=== PATIENT | male | born 1970 | race Caucasian/White ===

== ENCOUNTER 2023-01-01 11:42 | Emergency (ER) | payer OTHER, SELFPAY ==
[2023-01-01 11:54] VITALS: BP 133/87; PULSE 73; RESP 20; TEMP 36.7; O2SAT 96
--- NOTE | 2023-01-01 12:12 | ED.URI ---
HPI - URI/Sore Throat General Chief Complaint: Upper Respiratory Infection Stated Complaint: Flu symptoms Time Seen by Provider: 01/01/23 12:00 Source: patient Mode of arrival: ambulatory Limitations: no limitations History of Present Illness HPI Narrative: Chalino is a 52 year old male patient presenting to the clinic today with complaints of cough, congestion, scratchy throat, and feeling feverish. He reports the symptoms have been going on for 3 days. Denies any chest pain or shortness of breath. Does have a history of COPD. Cough is nonproductive at this time but is keeping him awake at night. MD elicited complaint: sore throat and nasal congestion Related Data Home Medications Medication Instructions Recorded Confirmed amlodipine 10 mg tablet 10 mg PO DAILY 03/29/19 01/01/23 enalapril maleate 20 mg tablet 40 mg PO DAILY 03/29/19 01/01/23 levothyroxine 100 mcg capsule 100 mcg PO DAILY 05/31/21 01/01/23 rosuvastatin 40 mg tablet 40 mg PO DAILY 05/31/21 01/01/23 sitagliptin phosphate 50 mg tablet 50 mg PO DAILY 05/31/21 01/01/23 (Januvia) clopidogrel 75 mg tablet 75 mg PO DAILY 01/01/23 01/01/23 dulaglutide 0.75 mg/0.5 mL 0.75 mg subcut DIRECTED 01/01/23 01/01/23 subcutaneous pen injector (Trulicity) Allergies Allergy/AdvReac Type Severity Reaction Status Date / Time No Known Allergies Allergy Verified 01/01/23 11:52 Review of Systems Review of Systems: Pertinent positives per HPI. Patient denies any fever, chills, rash, headache, visual changes, dizziness, shortness of breath, chest pain, palpitations, nausea, vomiting, diarrhea, constipation, abdominal pain, or any urinary issues. [facility] Past Medical History Medical History Dyslipidemia Essential hypertension Hypersomnia Obstructive sleep apnea PAF (paroxysmal atrial fibrillation) Family History Family History Father Diabetes mellitus Hypertension Cerebrovascular accident Sibling Hypertension Family history of elevated blood lipids Mother Carcinoma of colon Social History Social History Smoking status: Never smoker Alcohol intake: never Comments At the time of my signature, I reviewed and agree with the nursing past medical, surgical, social, and family history. There is no relevant family history pertinent to the patient complaint. Exam Narrative: General: Well-developed, morbidly obese in no apparent distress Head: Normocephalic, atraumatic Eyes: Pupils equally round and reactive to light bilaterally, EOM intact, sclera and conjunctive clear, no discharge, lids normal Ears: TMs intact and clear, ear canals clear, no drainage, grossly hearing normal. Nose: Nares patent, clear discharge, no inflammation, no sinus tenderness. Mouth: Oral pharynx without lesions or masses, good dentition, MMM. Postnasal drip Neck: Supple, trachea midline, no enlargement of anterior or posterior cervical nodes, no thyroid masses or goiter palpable. Cardio: Regular rate and rhythm, s1 and s2 normal, no murmur appreciated. Resp: Expiratory wheezing throughout lung phillips, no rhonchi, rales, or rubs Course Course Emergency Course: Portions of this record may have been created with voice recognition software. Level of Care: Express Care Visit Vital Signs Vital signs: Vital Signs Temperature 36.7 C 01/01/23 11:54 Pulse Rate 73 01/01/23 11:54 Respiratory Rate 20 01/01/23 11:54 Blood Pressure 133/87 01/01/23 11:54 Pulse Oximetry 96 01/01/23 11:54 Temperature 36.7 C 01/01/23 11:54 Pulse Rate 73 01/01/23 11:54 Respiratory Rate 20 01/01/23 11:54 Blood Pressure 133/87 01/01/23 11:54 Pulse Oximetry 96 01/01/23 11:54 Vital signs reviewed MDM - URI/Sore Throat MDM Narrative Medical decision making n
== END 2023-01-01 12:18 | disposition home or self-care (01) ==
PROVIDERS: Emergency Provider Nurse Practitioner Family; PCP Internal Medicine
DX: J40 Bronchitis, not specified as acute or chronic (principal); J06.9 Acute upper respiratory infection, unspecified; Z20.822 Contact with and (suspected) exposure to COVID-19; J44.9 Chronic obstructive pulmonary disease, unspecified; E78.5 Hyperlipidemia, unspecified; I10 Essential (primary) hypertension; I48.0 Paroxysmal atrial fibrillation
CPT/HCPCS: 87426; 99213; C9803; G0463

== ENCOUNTER 2023-05-26 07:25 | Outpatient (CLI) | payer OTHER, SELFPAY ==
--- NOTE | ~2023-05-26 | CT_ITS ---
EXAMINATION: CT abdomen pelvis wo/w con DATE: 05/26/2023 08:34 INDICATION: Hematuria TECHNIQUE: Computed tomography (CT) of the abdomen and pelvis was performed without intravenous contr ast. CT of the abdomen and pelvis was then performed with a total of 130 mL Omnipaque 350 intravenous contrast using a double-bolus technique for simultaneous opacification of the renal parenchyma and r enal collecting system. The dose-length product (DLP) was 3328.67 mGy-cm. Automated exposure control and iterative reconstruction technique were employed. COMPARISON: None FINDINGS: There are nodules measuring 6 mm and 4 mm in the right middle lobe. There are small pleural effusions, right greater than left. The heart size is normal. Calcified coronary artery atherosclero sis is noted. The liver, spleen, pancreas, gallbladder, and adrenal glands are normal. There is a 5 m m nonobstructing stone of the left kidney lower pole. There are areas of cortical scarring of the kid neys. No suspicious renal or urothelial lesion identified. The ureters are not well opacified with co ntrast. No ureteral mass or stricture are identified. No pathologically enlarged abdominal or pelvic lymph nodes are identified. Bilateral external iliac chain lymph nodes are prominent but not patholog ically enlarged. No free intraperitoneal gas or evidence of bowel obstruction. There are bilateral L5 pars defects with grade 1 anterolisthesis of L5 on S1. IMPRESSION: 1. 5 mm nonobstructing stone of the left kidney lower pole. No suspicious renal or urothelial lesion identified although contrast opacification of the urinary tract is only fair. 2. Right middle lobe nodules. Follow-up CT in 3-6 months is recommended. Reviewed, dictated and finalized at location [facility]
[2023-05-26 07:47] LABS: Estimated Glomerular Filt Rate > 60
== END 2023-05-26 07:26 | disposition home or self-care (01) ==
LOC: CHSIMG 07:26
PROVIDERS: PCP Internal Medicine; Visit Provider Internal Medicine
DX: R31.29 Other microscopic hematuria (principal); N20.0 Calculus of kidney; R91.8 Other nonspecific abnormal finding of lung field
CPT/HCPCS: 74178; Q9967

== ENCOUNTER 2023-09-28 12:59 | Outpatient (CLI) | payer OTHER, SELFPAY ==
--- NOTE | ~2023-09-28 | CT_ITS ---
CT Scan of the Chest without Contrast: Clinical Indication: Pulmonary nodule Technique: Contiguous sections were acquired throughout the chest without intravenous contrast. Dose reduction technique was used on this scan by utilizing automated exposure control and iterative recon struction technique. The dose-length product (DLP) was 988.54 mGy-cm. COMPARISON: 05/26/2023 Findings: There is no evidence of any significant mediastinal, hilar or axillary lymphadenopathy. Coronary mona ry calcifications are present. No pericardial effusion. Minimal right pleural effusion present. No left pleural effusion. Stable 5 mm right basilar pulmonary nodule (axial image 53). Stable additional 3 mm right middle lobe pulmonary nodule. Stable pleural-based nodule posteriorly at the left lung base. Images through the upper abdomen reveal no abnormalities. Impression: Stable subcentimeter pulmonary nodules, as above. Minimal right pleural effusion. Reviewed, dictated and finalized at [facility]. Impression: Stable subcentimeter pulmonary nodules, as above. Minimal right pleural effusion.
== END 2023-09-28 13:00 | disposition home or self-care (01) ==
PROVIDERS: PCP Internal Medicine; Visit Provider Nurse Practitioner Family
DX: R91.8 Other nonspecific abnormal finding of lung field (principal); J90 Pleural effusion, not elsewhere classified
CPT/HCPCS: 71250

== ENCOUNTER 2024-01-02 00:59 | Day surgery (SDC) | payer OTHER, SELFPAY ==
[2023-12-20 15:26] VITALS: BMI 64.6
--- NOTE | 2023-12-21 16:31 | PC.NURSE ---
Addendum entered by Yolanda Samuels RN 12/29/23 13:34: Pt clarifies that he was taking Plavix until about 3 weeks ago when he started on Pradaxa (Dabigatran) 150mg po bid, he was thinking that Plavix was the same as Pradaxa when he did his med list. Original Note: Spoke with patient regarding his last appt. with DR. Nicole- pt thought it was about 6 months ago and has been since 09/2022. Dr. Nicole wants to see pt in office before clearing him and office was questioning why pt is on Plavix instead of Xarelto. I could not answer this only that Dr. Julien is prescribing. I spoke with Linda in Dr. Arboleda's office and in light of the pts BMI of 64.6 and cardiac history anesthesia would want pt to be seen and cleared by Dr. Nicole prior since it had been over a year. I called pt and spoke with him- he was not happy about having to see him prior but then agreed to call. Appt. is sched. with DR. Nicole for 12/28/2022 at 0945.
--- NOTE | 2023-12-29 13:32 | PC.NURSE ---
Spoke with PATIENT regarding medication PRADAXA(DABIGATRAN). Pt. verbalizes understanding that the last dose of PRADAXA is to be taken on 12/29/2023(STATES HE TOOK LAST DOSE ON [facility]. [place]. 01/03/2024- STATES he told Dr. Nicole this also, the Endoscopist will instruct them when to restart after the procedure.
[2024-01-02 08:30] VITALS: BP 123/81; PULSE 93; RESP 20; TEMP 35.9; O2SAT 95; BMI 66.2
[2024-01-02] MEDS: LACTATED RINGERS 1,000 ML 150 ML IV CONT (08:55)
[2024-01-02 08:57] LABS: Glucose Point of Care 125 mg/dl (65-105)
--- NOTE | 2024-01-02 09:40 | PM.IMHP ---
H&P: HPI History of Present Illness Date/Time: 01/02/24 09:40 Chief Complaint: history of colon polyps Narrative: this is a 53-year-old man who presents for colonoscopy. His last colonoscopy was 5 years ago and a polyp was removed. He denies any hematochezia or melena. He denies a family history of colon cancer. Review of Systems Review of Systems: All systems reviewed & are unremarkable except as noted in HPI and below Constitutional: Constitutional: Denies chills, Denies fever(s), Denies headache(s) and Denies weight loss Eyes: Eyes: Denies change in vision ENT: Denies dizziness, Denies headache(s), Denies neck mass and Denies throat swelling Cardiovascular: Cardiovascular: Denies chest pain, Denies lightheadedness and Denies dyspnea Respiratory: Respiratory: Denies cough, Denies dyspnea and Denies wheezing Gastrointestinal: Gastrointestinal: Denies abdominal pain, Denies change in bowel habits, Denies nausea and Denies vomiting Genitourinary: Genitourinary: Denies hematuria and Denies dysuria Musculoskeletal: Musculoskeletal: Reports as per HPI Integumentary/Breasts: Skin/Breast: Reports as per HPI Neurologic: Denies dizziness and Denies headache(s) Allergic/Immunologic: Allergic/Immunologic: Denies throat swelling and Denies wheezing [facility] Past Medical History Medical History Dyslipidemia Essential hypertension Hypersomnia Obstructive sleep apnea PAF (paroxysmal atrial fibrillation) Family History Family History Father Diabetes mellitus Hypertension Cerebrovascular accident Sibling Hypertension Family history of elevated blood lipids Mother Carcinoma of colon Social History Social History (Updated 12/29/23 @ 09:39 by Alexandra Rico [facility]) Smoking status: Never smoker Alcohol intake: current Substance use: never Substance use type: does not use Do You Feel Safe in your Home?: Yes Lack of Transportation: No Lack of Food: Never True Current Housing: I Have Housing Concerned About Future Housing: No Difficulty Paying Gas/Electric Bills: No Difficulty Paying for Meds: No Currently Unemployed: No Education: Trade/Vocational Certificate Difficulty w/ Childcare or Family Care: No Living arrangements: with family Spiritual care concerns: No Meds Home Medications and Allergies Home Medications Medication Instructions Recorded Confirmed Type amlodipine 10 mg tablet 10 mg PO DAILY 03/29/19 01/02/24 History enalapril maleate 20 mg tablet 40 mg PO DAILY 03/29/19 01/02/24 History levothyroxine 100 mcg capsule 100 mcg PO DAILY 05/31/21 01/02/24 History rosuvastatin 40 mg tablet 40 mg PO DAILY 05/31/21 01/02/24 History sitagliptin phosphate 50 mg tablet 50 mg PO DAILY 05/31/21 01/02/24 History (Januvia) metoprolol succinate 50 mg See Rx Instructions .Route 08/25/23 01/02/24 Rx tablet,extended release 24 hr .COMPLEX #90 tabs allopurinol 100 mg tablet 100 mg PO DAILY 12/20/23 01/02/24 History dabigatran etexilate 150 mg capsule 150 mg PO BID 12/29/23 01/02/24 History Allergies Allergy/AdvReac Type Severity Reaction Status Date / Time No Known Allergies Allergy Verified 01/02/24 08:37 Vital Signs Vital Signs - 24 hr 01/02/24 08:30 Temperature 96.7 F L Pulse Rate 93 Respiratory Rate 20 Blood Pressure 123/81 Pulse Oximetry 95 Oxygen Delivery Room Air Exam Const: General: no acute distress and alert Orientation/consciousness: patient oriented x3 HENMT: Head: normocephalic and atraumatic Ears: hearing grossly normal bilaterally Face/Nose/Sinus: Normal nares present Mouth: Yes Normal oral and palatal mucosa present Eyes: Periorbital: periorbital findings normal Sclera: sclerae normal EOM: EOMs intact bilaterally Neck: Neck: normal visual inspection, no lymphadenopathy and trachea midline Chest: Christiane
--- NOTE | 2024-01-02 10:07 | WPDANESEPPF ---
Anes - Initial Pre Proc Eval Procedure: Operation Date: 01/02/24 10:00 Proposed Procedures p Screening Colonoscopy - Javi Arboleda DO Date/Time: 01/02/24 10:07 Surgeon: Javi Arboleda DO Pre Op Diagnosis: Screening for malignant neoplasm of colon Patient Data Age: 53 Gender: M Height: 1.73 m Weight: 197.5 kg Last Vital Signs Temp 35.9 C L 01/02/24 08:30 Pulse 93 01/02/24 08:30 Resp 20 01/02/24 08:30 BP 123/81 01/02/24 08:30 Pulse Ox 95 01/02/24 08:30 O2 Del Method Room Air 01/02/24 08:30 Allergies Allergy/AdvReac Type Severity Reaction Status Date / Time No Known Allergies Allergy Verified 01/02/24 08:37 Home Medications Medication Instructions Recorded Confirmed Type amlodipine 10 mg tablet 10 mg PO DAILY 03/29/19 01/02/24 History enalapril maleate 20 mg tablet 40 mg PO DAILY 03/29/19 01/02/24 History levothyroxine 100 mcg capsule 100 mcg PO DAILY 05/31/21 01/02/24 History rosuvastatin 40 mg tablet 40 mg PO DAILY 05/31/21 01/02/24 History sitagliptin phosphate 50 mg tablet 50 mg PO DAILY 05/31/21 01/02/24 History (Januvia) metoprolol succinate 50 mg See Rx Instructions .Route 08/25/23 01/02/24 Rx tablet,extended release 24 hr .COMPLEX #90 tabs allopurinol 100 mg tablet 100 mg PO DAILY 12/20/23 01/02/24 History dabigatran etexilate 150 mg capsule 150 mg PO BID 12/29/23 01/02/24 History Laboratory Tests 01/02/24 08:54 POC Capillary Glucose 125 H mg/dl (65-105) Patient hx anesthesia problems: none Family hx anesthesia problems: none Results Review: All pre-operative results and documents have been reviewed as part of the pre-operative evaluation. [facility] Past Medical History Medical History Dyslipidemia Essential hypertension Hypersomnia Obstructive sleep apnea PAF (paroxysmal atrial fibrillation) Family History Family History Father Diabetes mellitus Hypertension Cerebrovascular accident Sibling Hypertension Family history of elevated blood lipids Mother Carcinoma of colon Social History Social History (Updated 12/29/23 @ 09:39 by Alexandra Rico [facility]) Smoking status: Never smoker Alcohol intake: current Substance use: never Substance use type: does not use Do You Feel Safe in your Home?: Yes Lack of Transportation: No Lack of Food: Never True Current Housing: I Have Housing Concerned About Future Housing: No Difficulty Paying Gas/Electric Bills: No Difficulty Paying for Meds: No Currently Unemployed: No Education: Trade/Vocational Certificate Difficulty w/ Childcare or Family Care: No Living arrangements: with family Spiritual care concerns: No Anes - Eval Final PreProcedure Day of Procedure 01/02/24 10:07 Patient weight: super morbidly obese Heart: regular rate and rhythm Lungs: clear to auscultation Airway: Mallampati scale class II Neurological: alert and oriented Last oral intake: >/= 8 hours ASA classification: IV Emergent: no Anesthetic plan: proceed Anesthesia type and monitoring: general GIVS and standard monitoring Results Review: All pre-operative results and documents have been reviewed as part of the pre-operative evaluation. Informed Consent: The patient's anesthetic plan and its attendant risks and benefits were discussed with the patient/family/POA. Questions were solicited and answers provided to the satisfaction of the patient/family/POA.
--- NOTE | 2024-01-02 10:20 | SUR.PREOP ---
1010 Cristino Francis [employer] requested the patient be hooked to the heart monitor. Patient hooked up to the monitor and heart rate in the 80 s afib. Pulse ox at 94 on room air. O2 at 2L per nasal cannula applied per anesthesia request. 1023 Patient sitting up on the stretcher. Heart remains in the 80's and PO is stating at 99 % with O2 on at 2 L per nasal cannula. No complaints voiced.
[2024-01-02 11:02] VITALS: BP 93/67; PULSE 99; RESP 26; O2SAT 98
[2024-01-02 11:12] VITALS: BP 119/61; PULSE 88; RESP 19; O2SAT 98
[2024-01-02 11:22] VITALS: BP 115/52; PULSE 95; RESP 26; O2SAT 98
== END 2024-01-02 11:31 | disposition home or self-care (01) ==
PROVIDERS: PCP Internal Medicine; Visit Provider Surgery
PROC: 0DJD8ZZ Inspection of Lower Intestinal Tract, Via Natural or Artificial Opening Endoscopic (ICD-10-PCS; CPT 45378; principal; 2024-01-02 10:00)
DX: Z12.11 Encounter for screening for malignant neoplasm of colon (principal); K57.30 Diverticulosis of large intestine without perforation or abscess without bleeding; Z86.010 Personal history of colon polyps; I10 Essential (primary) hypertension; E78.5 Hyperlipidemia, unspecified; I48.0 Paroxysmal atrial fibrillation; G47.33 Obstructive sleep apnea (adult) (pediatric); Z79.84 Long term (current) use of oral hypoglycemic drugs; E66.01 Morbid (severe) obesity due to excess calories; Z68.44 Body mass index [BMI] 60.0-69.9, adult
CPT/HCPCS: 45378; 82948; J2001; J2250; J2704; J7120

== ENCOUNTER 2024-04-24 08:16 | Outpatient (CLI) | payer BC, SELFPAY ==
[2024-04-24 09:21] LABS: Alanine Aminotransferase 27 U/L (16-63); Albumin Level 3.8 g/dL (3.4-5.0); Alkaline Phosphatase 77 U/L (46-116); Anion Gap 9 mmol/L (4-12); Aspartate Amino Transferase 19 U/L (15-37); Bilirubin,Total 1.5 mg/dL (0.00-1.00); Blood Urea Nitrogen 15 mg/dL (7-18); Calcium 9.3 mg/dL (8.5-10.1); Carbon Dioxide 30 mmol/L (21-32); Chloride 99 mmol/L (98-108); Estimated Glomerular Filt Rate > 60; Free T3 2.67 pg/mL (2.18-3.98); Free T4 Free Thyroxine 1.07 ng/dL (0.76-1.46); Glucose 108 mg/dL (70-99); Osmolality Calculated 287 mOsm/kg (285-295); Potassium 4.4 mmol/L (3.5-5.1); Sodium 138 mmol/L (136-145); Thyroid Stimulating Hormone 4.69 uIU/mL (0.36-3.74); Total Protein 7.5 g/dL (6.4-8.2); Uric Acid 7.7 mg/dL (3.5-7.2)
[2024-04-24 22:42] LABS: Hemoglobin A1C 5.8 % (<5.7)
== END 2024-04-24 08:17 | disposition home or self-care (01) ==
LOC: CHSLAB 08:21
PROVIDERS: PCP Internal Medicine; Visit Provider Internal Medicine
DX: E03.4 Atrophy of thyroid (acquired) (principal); E79.0 Hyperuricemia without signs of inflammatory arthritis and tophaceous disease; E11.9 Type 2 diabetes mellitus without complications
CPT/HCPCS: 36415; 80053; 83036; 84439; 84443; 84481; 84550

== ENCOUNTER 2025-03-06 08:22 | Outpatient (CLI) | payer BC, SELFPAY ==
[2025-03-06 08:39] LABS: Hematocrit 50.2 % (40.0-54.0); Hemoglobin 16.1 g/dL (14.0-18.0); Mean Corpuscular HGB Conc 32.1 g/dL (32-36); Mean Corpuscular Hemoglobin 29.6 pg (27.0-31.0); Mean Corpuscular Volume 92.3 fL (78.0-102.0); Platelet Count Result 206 K/mm3 (150-420); Red Blood Count 5.44 M/mm3 (4.70-6.10); White Blood Count 6.8 K/mm3 (4.8-10.8)
[2025-03-06 08:41] LABS: Add Urine Microscopic? YES; Appearance Urine Clear (Clear); Glucose Urine UA Negative (Negative); Leukocyte Esterase Ur Negative LEU/UL (Negative); Nitrate Urine Negative (Negative); Specific Grav Ur 1.010 (1.010-1.020)
[2025-03-06 08:52] LABS: Hemoglobin A1C 6.2 % (<5.7)
[2025-03-06 08:58] LABS: Alanine Aminotransferase 32 U/L (6-50); Albumin Level 4.8 g/dL (3.5-5.1); Alkaline Phosphatase 65 U/L (38-126); Anion Gap 14 mmol/L (4-12); Aspartate Amino Transferase 36 U/L (17-59); Bilirubin,Total 1.7 mg/dL (0.2-1.3); Blood Urea Nitrogen 12 mg/dL (9-20); Calcium 9.6 mg/dL (8.4-10.2); Carbon Dioxide 31 mmol/L (22-30); Chloride 97 mmol/L (98-107); Cholesterol 154 mg/dL (0-200); Estimated Glomerular Filt Rate > 60; Glucose 123 mg/dL (65-110); HDL Direct 43 mg/dL; Osmolality Calculated 294 mOsm/kg (285-295); Potassium 4.2 mmol/L (3.4-5.0); Sodium 142 mmol/L (137-145); Total Protein 8.1 g/dL (6.3-8.2); Triglycerides 219 mg/dL (<150); Uric Acid 6.5 mg/dL (3.5-8.5)
[2025-03-06 09:07] LABS: NT Pro B Type Natriuretic Pept 1270 pg/mL (19.9-100)
[2025-03-06 09:15] LABS: Free T4 Free Thyroxine 1.51 ng/dL (0.78-2.19)
[2025-03-06 09:16] LABS: Free T3 3.71 pg/mL (2.18-3.98)
[2025-03-06 09:28] LABS: Prostate Specific Antigen 0.3 ng/mL (< OR = 4.0)
[2025-03-06 13:32] LABS: Creatine Kinase 127 U/L (55-170)
[2025-03-06 14:04] LABS: Thyroid Stimulating Hormone 6.430 uIU/mL (0.465-4.680)
== END 2025-03-06 08:23 | disposition home or self-care (01) ==
PROVIDERS: PCP Internal Medicine; Visit Provider Internal Medicine
DX: I10 Essential (primary) hypertension (principal); E11.9 Type 2 diabetes mellitus without complications; R53.82 Chronic fatigue, unspecified; N39.0 Urinary tract infection, site not specified; Z12.5 Encounter for screening for malignant neoplasm of prostate; E79.0 Hyperuricemia without signs of inflammatory arthritis and tophaceous disease
CPT/HCPCS: 36415; 80053; 80061; 81001; 82550; 83036; 83880; 84153; 84439; 84443; 84481; 84550; 85027; G0103